=== PATIENT | male | born 1990 | race Caucasian/White ===

== ENCOUNTER 2016-12-31 14:30 | Emergency (ER) | payer BC ==
[~2016-12-31] VITALS: Ht 172.7 cm; Wt 61.2 kg
[2016-12-31 14:35] VITALS: BP 141/97
[2016-12-31] MEDS: DIPHTH,PERTUSS(ACELL),TET TOX 0.5 ML DISP.SYRIN. VAX IM ONE (15:48)
--- NOTE | 2016-12-31 16:44 | ED.ADGEN ---
Past History Past Medical History: No Pertinent History Past Surgical History: No Surgical History, Other Alcohol Use: None Drug Use: Marijuana Adult General Chief Complaint Chief Complaint " ..I got my hand cut on some glass... 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 " HPI HPI Patient is a 26 year old male who presents with above hx and complaints of 4 cm laceration to the middle distal edge of left palm. Distal neurovascular intact. Patient is left-hand dominant. No history of immunosuppression. No history of travel. No history of ill contacts. Review of Systems Review of Systems Constitutional: Denies fever or chills [] Eyes: Denies change in visual acuity, redness, or eye pain [] HENT: Denies nasal congestion or sore throat [] Respiratory: Denies cough or shortness of breath [] Cardiovascular: No additional information not addressed in HPI [] GI: Denies abdominal pain, nausea, vomiting, bloody stools or diarrhea [] : Denies dysuria or hematuria [] Musculoskeletal: Denies back pain or joint pain [] Integument: Denies rash or skin lesions [] complaints of laceration left hand Neurologic: Denies headache, focal weakness or sensory changes [] Endocrine: Denies polyuria or polydipsia [] Family History Family History Noncontributory Current Medications Current Medications Current Medications Medications (Trade) Dose Ordered Sig/Samra Start Time Stop Time Status Last Admin Dose Admin Bupivacaine HCl (Sensorcaine Mpf 0.5%) 30 ml 1X ONCE 12/31/16 17:15 12/31/16 17:16 DC Ceftriaxone Sodium (Rocephin Im) 1 gm 1X ONCE 12/31/16 18:00 12/31/16 18:01 DC 12/31/16 18:20 1 GM Diphtheria/ Tetanus/Acell Pertussis (Boostrix) 0.5 ml ONCE ONCE 12/31/16 17:00 12/31/16 17:01 DC Lidocaine HCl 20 ml 1X ONCE 12/31/16 17:15 12/31/16 17:16 DC See nursing for home meds Allergies Allergies Allergies Coded Allergies Type Severity Reaction Last Updated Verified meperidine Allergy Severe 12/31/16 Yes acetaminophen Allergy Mild Nausea 12/31/16 Yes ibuprofen Allergy Mild Nausea 12/31/16 Yes Physical Exam Physical Exam Constitutional: Well developed, well nourished, in acute distress, non-toxic appearance. [] HENT: Normocephalic, atraumatic, bilateral external ears normal, oropharynx moist, no oral exudates, nose normal. [] Eyes: PERRLA, EOMI, conjunctiva normal, no discharge. [] Neck: Normal range of motion, no tenderness, supple, no stridor. [] Cardiovascular:Heart rate regular rhythm, no murmur [] Lungs & Thorax: Bilateral breath sounds equal at apexes on auscultation [] Abdomen: Bowel sounds normal, soft, no tenderness, no masses, no pulsatile masses. [] Skin: Warm, dry, no erythema, no rash. [] Back: No tenderness, no CVA tenderness. [] Extremities: Lt hand tenderness, no cyanosis, no clubbing, ROM intact, Lt palm edema. [] Laceration left hand as per history of present illness. Old scar from previous wrist surgery Neurologic: Alert and oriented X 3, normal motor function, normal sensory function, no focal deficits noted. [] Psychologic: Affect normal, judgement normal, mood normal. [] Current Patient Data Vital Signs Vital Signs Date Time Temp Pulse Resp B/P Pulse Ox O2 Delivery O2 Flow Rate FiO2 12/31/16 14:35 98.1 100 12 Room Air EKG EKG [] Radiology/Procedures Radiology/Procedures My interpretation of hand x-ray shows no large particles of glass. Does have soft tissue deficit . Does have findings of previous hardware repair [] Course & Med Decision Making Course & Med Decision Making Pertinent Labs and Imaging studies reviewed. (See chart for details) Procedure note- laceration repair- wound edges cleaned with Betadine and injected edges of wound with Sensorcaine and lidocaine. Patient then scrubbed the wound under running water and surgical soap. I re-irrigated wound with pressure saline in range of motion. Wound closed with 4x 4-0 sutures. Bulk dressing. Patient received an injection of Rocephin IM and to continue Keflex 500 mg 3 times a day for 7 days. Keep wound clean and dry. Patient take Tylenol or Profen for discomfort. Sutures out in 10 days. Must monitor very closely for any signs of infection. Return if any concerns. [] Final Impression Final Impression 1. Left palm 4 cm laceration [] Problems: Dragon Disclaimer Dragon Disclaimer This electronic medical record was generated, in whole or in part, using a voice recognition dictation system. WILLY HERNANDEZ MD Dec 31, 2016 16:44
[2016-12-31] MEDS ORDERED: LIDOCAINE 2% 20 ML VIAL. IJ ONE ×2 (16:45→17:15)
[2016-12-31] MEDS ORDERED: BUPIVACAINE MPF 0.5% 30 ML VIAL. SQ ONE ×2 (17:00→17:15)
[2016-12-31] MEDS ORDERED: DIPHTH,PERTUSS(ACELL),TET TOX 0.5 ML DISP.SYRIN. VAX IM ONE (17:00)
[2016-12-31] MEDS ORDERED: CEPH-264 PO (17:44)
[2016-12-31] MEDS: CEFTRIAXONE IM 1 GM VIAL. IM ONE (18:20)
--- NOTE | 2017-01-01 08:33 | RAD ---
Indication cut on glass. AP oblique and lateral views of the left hand were obtained. Plate and multiple screws are noted associated with the visualized distal radius. There is a soft tissue lucency involving the webspace between the index and long finger and the second and third metacarpals. This is best seen on the AP image and may represent air in the soft tissues. A bony abnormality or definite foreign body in the soft tissues is not seen. IMPRESSION: No acute bony finding. No definite radiopaque foreign body is seen
== END 2016-12-31 18:27 | disposition home or self-care (01) ==
LOC: ER 14:30
DX: S61.412A Laceration without foreign body of left hand, initial encounter (principal); F12.10 Cannabis abuse, uncomplicated; Z88.6 Allergy status to analgesic agent; Z88.8 Allergy status to other drugs, medicaments and biological substances; W25.XXXA Contact with sharp glass, initial encounter; Y93.89 Activity, other specified; Y99.8 Other external cause status; Y92.89 Other specified places as the place of occurrence of the external cause
CPT/HCPCS: 12002; 73130; 90471; 90715; 96372; 99284; J0696